=== PATIENT | male | born 1985 | race Caucasian/White ===

== ENCOUNTER 2023-02-28 11:03 | Outpatient (OUT) | payer OTHER, SELFPAY ==
--- NOTE | 2023-02-28 11:28 | XR_ITS ---
The [address] [address] Patient Name: HEBER MENENDEZ MRN: [id number] date: 1985 Sex: M Assigned Patient Location: RAD Current Patient Location: RAD Accession/Order Number: [id number] Exam Date: 02/28/2023 11:23 Report Date: 02/28/2023 11:38 At the request of: BELEM ABEL Procedure: XR chest 2V PROCEDURE: XR chest 2V DATE: 02/28/2023 10:23 AM CDT COMPARISONS: None. CLINICAL INDICATION: 37 years Male Cough FINDINGS: The cardiomediastinal silhouette and pulmonary vasculature are within normal limits. There is slight heterogeneous density of the left lower lung reyes best seen mid lateral near the hemidiaphragm. This could all represent atelectasis. Given the history, this may represent some developing inflammatory infiltrate (pneumonia). There is no evidence of pleural effusion or pneumothorax. XR/XR chest 2V IMPRESSION: Small amount of atelectasis or inflammatory infiltrate left lung base. Exam is otherwise within normal limits. Electronically authenticated by: SHERRY MARTÍNEZ Date: 02/28/2023 11:38
== END 2023-02-28 11:04 | disposition home or self-care (01) ==
LOC: RAD 11:08
PROVIDERS: PCP Family Medicine; Visit Provider Nurse Practitioner
DX: R04.2 Hemoptysis (principal); R05.9 Cough, unspecified
CPT/HCPCS: 71046